=== PATIENT | female | born 1985 | race Caucasian/White ===

== ENCOUNTER → 2020-11-05 11:38 | Outpatient (BNVA) | payer OTHER, SELFPAY | PROVIDERS: Family Provider Family Medicine; PCP Family Medicine; Visit Provider Orthopaedic Surgery | DX: M54.5 Low back pain (principal); M41.9 Scoliosis, unspecified | CPT/HCPCS: 72114 ==

== ENCOUNTER → 2020-12-18 11:29 | Outpatient (BNVA) | payer OTHER, SELFPAY | PROVIDERS: Family Provider Family Medicine; PCP Family Medicine; Visit Provider Nurse Practitioner Family | DX: Z20.828 Contact with and (suspected) exposure to other viral communicable diseases (principal); J11.1 Influenza due to unidentified influenza virus with other respiratory manifestations | CPT/HCPCS: 87400; 87635 ==

== ENCOUNTER → 2021-05-19 12:04 | Outpatient (BNVA) | payer OTHER, SELFPAY | PROVIDERS: Family Provider Family Medicine; PCP Family Medicine; Visit Provider Specialist | DX: M25.519 Pain in unspecified shoulder (principal); M25.512 Pain in left shoulder | CPT/HCPCS: 73030 ==

== ENCOUNTER 2021-06-20 15:43 | Outpatient (CLI) | payer OTHER, SELFPAY ==
--- NOTE | 2021-06-20 16:00 | MR_ITS ---
WS: [id number] MRI LEFT SHOULDER NONCONTRAST TECHNIQUE: Sagittal T2, coronal T1, T2 and proton density imaging. Axial gradient PDE imaging. CLINICAL INFORMATION: M25.512 - Pain in left shoulder COMPARISON: None. FINDINGS: Normal AC joint. No significant edema. No subacromial or subdeltoid fluid. No significant downsloping of the acromion. Fluid signal surface tear involving the distal supraspinatus approximately 1 cm fro m the insertion. This measures approximately 9 mm with intrasubstance signal normality. This is adjac ent to the tip of the acromium and appears to involve approximately 50% of the tendon. No tendon retr action. Normal infraspinatus. Normal teres minor. Normal subscapularis. Normal biceps tendon in the bicipital groove. Normal biceps labral anchor. Glenoid labrum appears ganesh ssly normal. Normal bone marrow signal within the humerus and glenoid. No other significant findings. MR/MR shoulder LT wo con* [id number] IMPRESSION: 1. Fluid signal bursal surface and intrasubstance tear measuring approximately 9 mm and involving approximately 50% of the distal supraspinatus tendon 1 cm f rom the insertion. No tendon retraction. 2. Rotator cuff is otherwise normal. 3. Normal subscapularis. Normal biceps tendon in the bicipital groove. 4. Normal biceps labral anchor. 5. Intra-articular biceps tendon appears normal. 6. Minimal degenerative changes at the AC joint.
== END 2021-06-20 15:44 | disposition home or self-care (01) ==
LOC: RADSHAW 15:45
PROVIDERS: PCP Family Medicine; Visit Provider Specialist
DX: M25.512 Pain in left shoulder (principal)
CPT/HCPCS: 73221

== ENCOUNTER → 2021-08-30 10:50 | Outpatient (BNVA) | payer OTHER, SELFPAY | PROVIDERS: PCP Family Medicine; Referring Provider Family Medicine; Visit Provider Internal Medicine | DX: E66.01 Morbid (severe) obesity due to excess calories (principal); F41.9 Anxiety disorder, unspecified; F32.9 Major depressive disorder, single episode, unspecified; R53.83 Other fatigue; Z68.42 Body mass index [BMI] 45.0-49.9, adult; F17.210 Nicotine dependence, cigarettes, uncomplicated | CPT/HCPCS: 99203; 99204 ==

== ENCOUNTER 2021-09-02 11:41 | Outpatient (CLI) | payer OTHER, SELFPAY ==
[2021-09-02 12:09] LABS: Estmated Average Glucose 97
[2021-09-02 12:43] LABS: Free T4 Free Thyroxine 1.17 ng/dL (0.82-1.77); Thyroid Stimulating Hormone 2.46 uIU/mL (0.27-4.20)
[2021-09-04 14:30] LABS: Urine Creatinine 95 mg/dL (28-217)
[2021-09-04 14:42] LABS: Total Volume Urine 1900 ml
[2021-09-08 15:07] LABS: Free Cortisol Urine 61.3 mcg/24 h (4.0-50.0); Total Urine 1900 mL; Urine Creatinine 1.93 g/24 h (0.50-2.15)
== END 2021-09-02 11:42 | disposition home or self-care (01) ==
PROVIDERS: PCP Family Medicine; Visit Provider Internal Medicine
DX: E66.01 Morbid (severe) obesity due to excess calories (principal); F32.9 Major depressive disorder, single episode, unspecified; F41.9 Anxiety disorder, unspecified; Z68.42 Body mass index [BMI] 45.0-49.9, adult
CPT/HCPCS: 36415; 83036; 84439; 84443

== ENCOUNTER 2021-09-04 06:00 | Outpatient (CLI) | payer OTHER, SELFPAY | END 2021-09-04 06:01 | disposition home or self-care (01) | LOC: LAB 09-07 12:07 | PROVIDERS: PCP Family Medicine; Visit Provider Internal Medicine | DX: E66.01 Morbid (severe) obesity due to excess calories (principal); Z68.42 Body mass index [BMI] 45.0-49.9, adult; F41.9 Anxiety disorder, unspecified; F32.9 Major depressive disorder, single episode, unspecified | CPT/HCPCS: 82530; 82570 ==

== ENCOUNTER 2021-09-17 07:58 | Outpatient (CLI) | payer OTHER, SELFPAY ==
[2021-09-17 08:59] LABS: Cortisol Random 0.36 ug/dL (2.47-19.5)
== END 2021-09-17 07:59 | disposition home or self-care (01) ==
PROVIDERS: PCP Family Medicine; Visit Provider Internal Medicine
DX: E66.01 Morbid (severe) obesity due to excess calories (principal); Z68.42 Body mass index [BMI] 45.0-49.9, adult
CPT/HCPCS: 82533

== ENCOUNTER → 2021-10-04 16:20 | Outpatient (BNVA) | payer OTHER, SELFPAY | PROVIDERS: PCP Family Medicine; Visit Provider Nurse Practitioner | DX: Z20.822 Contact with and (suspected) exposure to COVID-19 (principal); B34.9 Viral infection, unspecified | CPT/HCPCS: 87426 ==

== ENCOUNTER 2021-10-09 10:31 | Outpatient (CLI) | payer OTHER, SELFPAY ==
[2021-10-09 11:49] LABS: Total Volume Urine 1200 ml
[2021-10-09 11:51] LABS: Urine Creatinine 165 mg/dL (28-217)
[2021-10-13 07:42] LABS: Free Cortisol Urine 37.1 mcg/24 h (4.0-50.0); Total Urine 1200 mL; Urine Creatinine 1.77 g/24 h (0.50-2.15)
== END 2021-10-09 10:32 | disposition home or self-care (01) ==
PROVIDERS: PCP Family Medicine; Visit Provider Internal Medicine
DX: E66.01 Morbid (severe) obesity due to excess calories (principal); R53.83 Other fatigue; Z68.42 Body mass index [BMI] 45.0-49.9, adult
CPT/HCPCS: 82530; 82570

== ENCOUNTER → 2021-10-27 11:11 | Outpatient (BNVA) | payer OTHER, SELFPAY | PROVIDERS: PCP Family Medicine; Visit Provider Internal Medicine | DX: E66.01 Morbid (severe) obesity due to excess calories (principal); Z68.42 Body mass index [BMI] 45.0-49.9, adult; R53.83 Other fatigue; F17.200 Nicotine dependence, unspecified, uncomplicated | CPT/HCPCS: 99214 ==

== ENCOUNTER → 2021-11-01 17:14 | Outpatient (BNVA) | payer OTHER, SELFPAY | PROVIDERS: PCP Family Medicine; Visit Provider Family Medicine | DX: F41.1 Generalized anxiety disorder (principal); H81.10 Benign paroxysmal vertigo, unspecified ear; I10 Essential (primary) hypertension | CPT/HCPCS: 80053; 85025 ==

== ENCOUNTER → 2021-12-13 15:59 | Outpatient (BNVA) | payer OTHER, SELFPAY | PROVIDERS: PCP Family Medicine; Visit Provider Physician Assistant | DX: M54.2 Cervicalgia (principal) | CPT/HCPCS: 72050 ==

== ENCOUNTER → 2022-10-03 08:38 | Outpatient (BNVA) | payer OTHER, SELFPAY | PROVIDERS: PCP Family Medicine; Visit Provider Family Medicine | DX: R53.83 Other fatigue (principal); R63.5 Abnormal weight gain; E66.01 Morbid (severe) obesity due to excess calories; Z68.42 Body mass index [BMI] 45.0-49.9, adult | CPT/HCPCS: 80053; 80061; 82533; 83036; 84443; 85025 ==

== ENCOUNTER → 2023-04-10 13:00 | Outpatient (BNVA) | payer OTHER, SELFPAY | PROVIDERS: PCP Family Medicine; Visit Provider Obstetrics & Gynecology | DX: Z12.4 Encounter for screening for malignant neoplasm of cervix (principal) | CPT/HCPCS: 87624 ==

== ENCOUNTER → 2023-04-26 08:21 | Outpatient (BNVA) | payer OTHER, SELFPAY | PROVIDERS: PCP Family Medicine; Visit Provider Specialist | DX: M77.11 Lateral epicondylitis, right elbow (principal) | CPT/HCPCS: 73080 ==

== ENCOUNTER → 2023-05-16 07:45 | Outpatient (BNVA) | payer OTHER, SELFPAY | PROVIDERS: PCP Family Medicine; Visit Provider Obstetrics & Gynecology | DX: N93.9 Abnormal uterine and vaginal bleeding, unspecified (principal); R93.89 Abnormal findings on diagnostic imaging of other specified body structures | CPT/HCPCS: 76830 ==

== ENCOUNTER → 2023-05-24 11:07 | Outpatient (BNVA) | payer OTHER, SELFPAY | PROVIDERS: PCP Family Medicine; Visit Provider Internal Medicine Cardiovascular Disease | DX: I47.9 Paroxysmal tachycardia, unspecified (principal); R00.2 Palpitations | CPT/HCPCS: 93005 ==

== ENCOUNTER 2023-11-17 17:12 | Emergency (ER) | payer SELFPAY ==
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
[2023-11-17 17:21] VITALS: BP 152/88; PULSE 93; RESP 18; TEMP 36.7; O2SAT 97; BMI 51.2
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
[2023-11-17] MEDS: ibuprofen 800 mg tablet PO (19:46)
[2023-11-17 20:10] VITALS: PULSE 97; O2SAT 98
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
== END 2023-11-17 20:10 | disposition home or self-care (01) ==
PROVIDERS: Emergency Provider Physician Assistant; PCP Family Medicine
DX: S20.211A Contusion of right front wall of thorax, initial encounter (principal); F17.210 Nicotine dependence, cigarettes, uncomplicated; V28.49XA Other motorcycle driver injured in noncollision transport accident in traffic accident, initial encounter
CPT/HCPCS: 71045; 71100; 99284

== ENCOUNTER → 2024-06-05 12:26 | Outpatient (BNVA) | payer OTHER, SELFPAY | PROVIDERS: PCP Family Medicine; Visit Provider Family Medicine | DX: E55.9 Vitamin D deficiency, unspecified (principal); I10 Essential (primary) hypertension; N93.9 Abnormal uterine and vaginal bleeding, unspecified; R53.82 Chronic fatigue, unspecified; R73.03 Prediabetes | CPT/HCPCS: 80053; 80061; 82306; 82607; 82672; 83001; 83002; 84144; 84439; 84443; 85025; 85651 ==

== ENCOUNTER → 2024-08-22 12:55 | Outpatient (BNVA) | payer OTHER, SELFPAY | PROVIDERS: PCP Family Medicine | DX: R11.2 Nausea with vomiting, unspecified (principal); R19.7 Diarrhea, unspecified | CPT/HCPCS: 87400; 87426 ==

== ENCOUNTER → 2025-01-01 08:09 | Outpatient (BNVA) | payer OTHER, SELFPAY | PROVIDERS: PCP Family Medicine | DX: R05.9 Cough, unspecified (principal) | CPT/HCPCS: 87400 ==

== ENCOUNTER → 2025-06-16 11:41 | Outpatient (BNVA) | payer OTHER, SELFPAY | PROVIDERS: PCP Family Medicine; Visit Provider Family Medicine | DX: I10 Essential (primary) hypertension (principal); E55.9 Vitamin D deficiency, unspecified; R73.03 Prediabetes; F41.1 Generalized anxiety disorder; E66.01 Morbid (severe) obesity due to excess calories; Z68.42 Body mass index [BMI] 45.0-49.9, adult; R79.89 Other specified abnormal findings of blood chemistry | CPT/HCPCS: 80053; 80061; 82306; 82607; 83735; 84439; 84443; 85027 ==